=== PATIENT | female | born 1970 | race African-American/Black ===

== ENCOUNTER 2019-07-21 13:17 | Inpatient (IN) ==
[2019-07-21] MEDS ORDERED: PROTONIX IV ONE (13:34)
[2019-07-21] MEDS ORDERED: SODIUM CHLORIDE 0.9% INJ ONE (13:34)
[2019-07-21 14:21] LABS: BASO# 0.01 X1000 (0.0-0.2); BASO% 0.1 % (0.0-0.8); EOS% 1.1 % (0.0-10.0); HEMATOCRIT 42.7 % (37.0-47.0); HEMOGLOBIN 13.3 g/dL (12.0-16.0); LYMPH# 2.34 X1000 (1.2-3.4); LYMPH% 24.8 % (20.5-51.1); MCH 25.6 PG (27-31); MCHC 31.1 g/dL (33-37); MCV 82.3 FL (81-99); MONO# 0.88 X1000 (0.11-0.59); MONO% 9.3 % (1.7-9.3); MPV 10.8 FL (7.4-10.4); NEUT% 64.7 % (42.2-75.2); PLT 258 X1000 (130-400); RBC 5.19 XMIL (4.2-5.4); RDW 14.4 % (11.5-14.5); WBC 9.43 X1000 (4.8-10.8)
[2019-07-21 14:28] LABS: INR 1.14; PROTIME 14.7 Seconds (11.0-16.0)
[2019-07-21 14:29] LABS: PTT 27.7 Seconds (22.3-41.8)
[2019-07-21 14:55] LABS: AGAP 12; ALB/GLOB RATIO 1.1; ALBUMIN 4.6 g/dL (3.5-5.0); ALKALINE PHOSPHATASE 73 U/L (32-104); BUN 11 mg/dL (8-22); CALCIUM 9.2 mg/dL (8.8-10.2); CHLORIDE 97 mmol/L (98-107); COSMO 279; CREATININE 0.9 mg/dL (0.5-0.9); ESTIMATED GFR > 60; GLUCOSE 96 mg/dL (70-104); GOT 12 U/L (10-30); GPT 15 U/L (10-36); POTASSIUM 3.1 mmol/L (3.5-5.1); SODIUM 140 mmol/L (136-145); TCO2 31 mmol/L (25-35); TOTAL BILIRUBIN 0.54 mg/dL (0.20-1.00); TOTAL PROTEIN 8.6 g/dL (6.3-8.3)
[2019-07-21] MEDS ORDERED: KLOR-CON PO ONE (15:00)
[2019-07-21] MEDS ORDERED: TYLENOL PO ONE (15:07)
--- NOTE | 2019-07-21 15:14 | PROVIDER DOCUMENTATION ---
This chart was entered by Genoveva Mckoy Scribe, acting as scribe for Shayan Bloom MD. HPI-Abdominal Pain/GI Problem - General Stated Complaint: GI BLEED Time Seen by Provider: 07/21/19 13:20 Source: patient Allergies/Adverse Reactions: Patient Allergies Allergy/AdvReac Type Severity Reaction Status Date / Time No Known Allergies Allergy Verified 07/21/19 13:39 Home Medications: Home Medication List Medication Instructions Recorded Confirmed Last Taken Type Amlodipine [Norvasc] 5 mg PO DAILY 07/20/19 07/21/19 07/21/19 History Hydralazine [Apresoline] 50 mg PO TID 07/20/19 07/21/19 07/21/19 History Nebivolol HCl [Bystolic] 10 mg PO DAILY 07/20/19 07/21/19 07/21/19 History Triamterene/Hydrochlorothiazid 1 tab PO DAILY 07/20/19 07/21/19 07/21/19 History [Triamterene-Hctz 37.5-25 mg Cp] Hydrocodone/APAP 5 mg/325 mg 1 ea PO TID PRN 07/21/19 07/21/19 07/21/19 History [O[place]-5] - History of Present Illness-ABD Nature of Presenting Problems: 48yof presents to ED by ems CC bright red rectal bleeding , right side abdominal pain, dizziness, dysuria and increased urine since this morning. Pt was seen at [place] yesterday for a fall and rectal bleeding. Pt has no hx of GI issues. Pt is nontoxic and in no acute distress upon exam but does has active rectal bleeding. Abdominal Pain Onset Location: reports: RLQ Pain Radiation: reports: no radiation Quality of Pain: reports: cramping Severity in ED: reports: mild Onset/Duration: reports: this morning Timing: reports: still present Modifying Factors: improves with: nothing Similar Symptoms Previously?: Yes Recently seen or treated by another doctor?: Yes (seen in ED 07/20/19) Review of Systems - Adult - REVIEW OF SYSTEMS - ADULT Constitutional: reports: see maday DUONG. denies: chills, fever Eyes: reports: no symptoms reported Ears, Nose, Mouth & Throat: reports: no symptoms reported Cardiovascular: reports: no symptoms reported Respiratory: reports: no symptoms reported Gastrointestinal: reports: see HPI, abdominal pain (RLQ), rectal bleeding. denies: diarrhea, nausea, vomiting Genitourinary: reports: see HPI, dysuria, frequency. denies: flank pain Musculoskeletal: reports: no symptoms reported Integumentary: reports: no symptoms reported Neurological: reports: see HPI, dizziness/vertigo. denies: syncope Psychiatric: reports: no symptoms reported Endocrine: reports: no symptoms reported Hematologic/Lymphatic: reports: no symptoms reported Allergic/Immunologic: reports: no symptoms reported All Other Systems: Reviewed and Negative Past History - Adult - PAST MEDICAL HISTORY-ADULT Review of Records: reports: Nursing Assessment Review, Medications Reviewed, Social history reviewed & non-contributory. Major Childhood Illnesses: reports: denies history Cardiovascular: reports: HTN Respiratory: reports: denies history Gastrointestinal: reports: denies history Obstetrical/Gynecological: reports: denies history Genitourinary: reports: dialysis, kidney disease, other (SONIYA) Musculoskeletal: reports: denies history Neurological: reports: CVA, stroke deficits Psychiatric: reports: denies history Endocrine/Immune: reports: denies history Other Conditions: reports: denies history - PRIOR SURGERIES/PROCEDURES Surgical/Procedure History: reports: cholecystectomy, hysterectomy, other (Double J stents for nephrolithiasis) - PRIOR HOSPITALIZATIONS Prior Hospitalizations: reports: for other non-related - IMMUNIZATION STATUS Childhood Immunizations: See Nurse Assessment Flu Vaccine: See Nurse Assessment - FAMILY HISTORY Family History: reviewed, not pertinent - SOCIAL HISTORY Smoking: denies Physical Exam-General - PHYSICAL EXAM-ADULT Initial Vital Signs Reviewed: Yes - CONSTITUTIONAL General Appearance: appears well, alert, no apparent distress, obese. negative: anxious, combative - EYES Eyes: PERRL/EOMI, pink conjunctivae. negative: photophobia - HEAD, EARS, NOSE, MOUTH & THROAT HENMT: normocephalic/atraumatic, moist mucous membranes. negative: angioedema - RESPIRATORY Respiratory: chest non-tender, lungs clear, normal breath sounds. negative: rhonchi, wheezing - CARDIOVASCULAR Cardiovascular: normal peripheral pulses, regular rate, rhythm, no edema. negative: bradycardia, tachycardia - GASTROINTESTINAL (ABDOMEN) Abdominal Exam: normal bowel sounds, soft, tenderness (RLQ) - GENITOURINARY Rectal Exam: normal exam, normal rectal tone, blood streaked stool Hemoccult Exam: heme positive stool - LYMPHATIC Lymphatic: no adenopathy - MUSCULOSKELETAL Back Exam: normal inspection, no CVA tenderness, no vertebral tenderness Extremity: normal range of motion, normal inspection - SKIN Integumentary: normal color. negative: diaphoresis, jaundice - PSYCHIATRIC Psych/Mental Status: normal mood/affect, oriented x 3. negative: anxious, disheveled Progress - PLAN OF CARE/RESULTS Progress/Plan/Lab Results: Orders Category Date Time Status CBC WITH ELECTRONIC DIFF [HEME] Stat Lab 07/21/19 13:22 Uncollected COMPREHENSIVE METABOLIC PANEL [CHEM] Stat Lab 07/21/19 13:22 Uncollected OCCULT BLOOD DIAGNOSTIC [STOOL] Stat Lab 07/21/19 13:22 Uncollected PROTIME WITH INR [COAG] Stat Lab 07/21/19 13:22 Uncollected PTT [COAG] Stat Lab 07/21/19 13:22 Uncollected URINALYSIS W/POSS RFLX CULT [URINALYSIS] Stat Lab 07/21/19 13:22 Uncollected Result Diagrams: 07/21/19 14:06 07/21/19 14:06 - CONSULTS/PCP/HOSPITALIST Notification #1 *Consult/PCP/Hospitalist*: Gauri/[employer] for Dr Johnson Time Discussed: 15:12 Consult Disposition: Admit (accepted pt) Departure - Departure Date of Disposition Decision: 07/21/19 Time of Disposition Decision: 15:12 DIAGNOSIS: GI bleeding, Hypokalemia Disposition: ADMITTED INPATIENT 09 Certified Medical Emergency: Emergent Condition: Fair Additional Instructions: ED Follow Up Instructions: You have been treated by a care provider in the Emergency Department. These instructions are being provided to you so you can have an understanding of how to care for yourself upon discharge. Upon discharge from the Emergency Department, you are responsible for making arrangements for follow-up care by a physician of your choice. Take all prescribed medications as directed. Return to the Emergency Department immediately for any new or worsening symptoms. You may call the Physician Referral phone number at [phone] to obtain a list of Physicians who are taking new patients. Referrals and Follow-Ups: Demetrius Wilkins MD [Primary Care Provider] - - Critical Care Note This patient required my direct & personal management of CC.: No Attestation - Physician/ SATURNINO Attestation Patient care was provided by Advanced Practice Provider:: No The physician spent face to face time with patient:: Yes Advanced Practice Provider documentation review:: Supervising physician onsite and consulted in the evaluation and care of this patient. The physician did have a face to face encounter with the patient. This chart was documented by the indicated scribe, (Genoveva Mckoy Scribe) and accurately reflects the services I performed and decisions made by me, Shayan Bloom MD, as attested by the provider's signature.
[2019-07-21] MEDS ORDERED: ZOFRAN IV PRN (15:32)
--- NOTE | 2019-07-21 15:37 | Diag Imaging Result Doc PS360 ---
EXAM: CT ABD/PELVIS W/IV CONT ONLY HISTORY: lower gi bleeding TECHNIQUE: CT abdomen and pelvis with intravenous contrast COMPARISON: 03/21/2016 FINDINGS: The gallbladder has been removed. There is fatty infiltration of the liver. Normal spleen, pancreas, adrenal glands, and kidneys. No hydronephrosis. Normal aorta. Normal appendix. No abscess. No bowel obstruction. The uterus has been removed. Normal ovaries. No pelvic mass. The urinary bladder is are not distended. Prominent degenerative changes in the lower cervical spine with severe spinal stenosis at L4-5. Thickening to the rectal wall inferiorly. IMPRESSION: 1.Possible proctitis 2.Cholecystectomy 3.There is fatty infiltration of the liver 4.Severe spinal stenosis at L4-5 5.Hysterectomy This exam was performed using automated exposure control, adjustment of mA or kV according to patient size, and/or use of iterative reconstruction technique. Electronically signed by Sumeet Jones 07/21/2019 3:34 PM
--- NOTE | 2019-07-21 15:45 | Diag Imaging Result Doc PS360 ---
EXAM: CHEST-PORTABLE HISTORY: dyspnea TECHNIQUE: Chest single view COMPARISON: 07/20/2018 FINDINGS: The lungs are well expanded. The heart is not enlarged. The vessels are mildly distended. There are no infiltrates. No effusion identified. IMPRESSION: Borderline mild pulmonary edema. Electronically signed by Sumeet Jones 07/21/2019 3:43 PM
[2019-07-21 15:54] LABS: URINE SOURCE CLEAN CATCH
[2019-07-21 15:58] LABS: BILIRUBIN URINE NEGATIVE (NEGATIVE); BLOOD URINE MODERATE (NEGATIVE); COLOR YELLOW; GLUCOSE URINE NEGATIVE (NEGATIVE); KETONE URINE NEGATIVE (NEGATIVE); LEUKOCYTES URINE NEGATIVE (NEGATIVE); NITRITE URINE NEGATIVE (NEGATIVE); PROTEIN URINE NEGATIVE (NEGATIVE); SP GRAVITY URINE 1.015; TURBIDITY URINE CLEAR (CLEAR); UROBILINOGEN URINE NORMAL (NORMAL)
[2019-07-21 15:59] LABS: UR EPITHELIAL CELLS <10 /HPF (<10); URINE BACTERIA NEGATIVE /HPF; URINE WBC <10 /HPF (<10)
[2019-07-21] MEDS: FLAGYL 500 MG/NS 500 MG/100 ML IVPB IV SCH (19:12)
[2019-07-21] MEDS: NS 1,000 ML IV SCH (19:12)
[2019-07-21] MEDS: APRESOLINE PO SCH (19:20)
[2019-07-21] MEDS: SODIUM CHLORIDE 0.9% INJ ONE (19:27)
--- NOTE | 2019-07-21 21:04 | HISTORY AND PHYSICAL ---
PRIMARY CARE PHYSICIAN: Jose Figueroa MD CHIEF COMPLAINT: "I started having rectal bleeding last night after suffering a fall, but I have been having diarrhea for the last week." HISTORY OF PRESENT ILLNESS: Ms. Cuevas is a 48-year-old female with a history of hypertension, and CVA and obesity who presented to the ER today with a chief complaint of rectal bleeding that started yesterday evening. The patient reports that she tripped and fell yesterday while cleaning up a room in her house. At that time she hit her right hip. She said shortly after falling, she started having rectal bleeding. She went to [facility] at which time she had an x-ray of the sacrum and coccyx done that was noted to show just chronic changes. No evidence of an acute fracture. The patient was told to follow up with her primary care physician. The patient also reports that she has been having diarrhea and that has been going on for about a week. She complains of mild nausea but no vomiting. She also complains of abdominal cramping whenever she has a bowel movement. She describes her stool as maroon in color. The patient reports that she has never had anything like this happen before. The patient's last colonoscopy was in June of 2015, and it was noted to be normal. PAST MEDICAL HISTORY: 1. Hypertension. 2. History of CVA x2. 3. Obesity. 4. Severe lumbar spinal stenosis PAST SURGICAL HISTORY: 1. Hysterectomy. 2. Cholecystectomy. FAMILY HISTORY: Reviewed and noncontributory. SOCIAL HISTORY: The patient lives at home with family. She denies any tobacco, alcohol or illicit drug use. ALLERGIES: No known drug allergies. HOME MEDICATIONS: 1. Norvasc 5 mg p.o. daily. 2. Hydralazine 50 mg p.o. 3 times a day. 3. [place] 5/325 one tab oral 3 times a day p.r.n. for pain. 4. Bystolic 10 mg p.o. daily. 5. Triamterene/hydrochlorothiazide 1 tab oral daily. REVIEW OF SYSTEMS: A 12-point review of systems has been performed. Please refer to the history of present illness for pertinent positives and negatives. PHYSICAL EXAMINATION: VITAL SIGNS: Temperature 97.3 degrees, blood pressure 143/86, heart rate 60, respirations 18, O2 saturations 100% on room air. GENERAL: This is an overweight female lying on the stretcher in no acute distress HEAD: Normocephalic, atraumatic NECK: Supple, no JVD, no lymphadenopathy HEART: S1, S2 normal. Regular rate and rhythm. LUNGS: Clear to auscultation bilaterally. No wheezing. No rales. No rhonchi. ABDOMEN: Positive bowel sounds. Soft, nontender, nondistended. EXTREMITIES: No edema. No cyanosis. No calf tenderness. NEUROLOGIC: The patient is alert and oriented x4. No focal neurologic deficits noted. LABORATORY DATA: White blood cell count 4.1, hemoglobin 12, hematocrit 40, platelets 258,000, Sodium 140, potassium 3.1, chloride 97, CO2 31, BUN 11, creatinine 0.9, glucose 96, magnesium 1.8, AST 12, ALT 15, albumin 4.6. DIAGNOSTIC DATA: 1. Chest x-ray shows mild pulmonary edema. 2. CT of the abdomen and pelvis shows proctitis. Fatty infiltration of the liver. Severe spinal stenosis at L4-L5. ASSESSMENT AND PLAN: 1. Rectal bleeding with proctitis. We will place the patient on a clear liquid diet. We will check stool studies and start the patient on Flagyl. We will also consult with GI. We will monitor the hemoglobin and hematocrit closely. 2. Hypertension. We will restart the patient's antihypertensive regimen. 3. History of cerebrovascular accident. Aware. 4. GI prophylaxis. Will start protonix. 5. Deep vein thrombosis prophylaxis. We will start the patient on SCDs. cc: Kim Johnson MD [facility]
[2019-07-21] MEDS: NORCO-5 PO PRN (21:12)
[2019-07-21 21:17] LABS: HEMATOCRIT 40.2 % (37.0-47.0); HEMOGLOBIN 12.6 g/dL (12.0-16.0)
[2019-07-22] MEDS: FLAGYL 500 MG/NS 500 MG/100 ML IVPB IV SCH ×5 (01:02→23:31)
[2019-07-22] MEDS: NORCO-5 PO PRN (03:45)
[2019-07-22] MEDS ORDERED: SODIUM CHLORIDE 0.9% 10 ML ONE ×2 (06:10→07:52)
[2019-07-22] MEDS: PROTONIX IV SCH ×2 (06:12→17:48)
[2019-07-22] MEDS: SODIUM CHLORIDE 0.9% INJ ONE (06:12)
[2019-07-22 06:17] LABS: HEMATOCRIT 41.1 % (37.0-47.0); HEMOGLOBIN 12.9 g/dL (12.0-16.0); MCHC 31.4 g/dL (33-37); MCV 82.7 FL (81-99); MPV 11.3 FL (7.4-10.4); RBC 4.97 XMIL (4.2-5.4); RDW 14.7 % (11.5-14.5); WBC 8.98 X1000 (4.8-10.8)
[2019-07-22] MEDS: NS 1,000 ML IV SCH ×3 (06:48→18:16)
[2019-07-22 06:49] LABS: AGAP 12; BUN 9 mg/dL (8-22); CALCIUM 9.3 mg/dL (8.8-10.2); CHLORIDE 101 mmol/L (98-107); COSMO 282; CREATININE 0.8 mg/dL (0.5-0.9); ESTIMATED GFR > 60; GLUCOSE 97 mg/dL (70-104); POTASSIUM 2.8 mmol/L (3.5-5.1); SODIUM 142 mmol/L (136-145); TCO2 29 mmol/L (25-35)
[2019-07-22] MEDS ORDERED: KLOR-CON PO ONE (06:50)
[2019-07-22] MEDS ORDERED: MAGNESIUM SULFATE 2 GM/S.W.I. 2 GM/50 ML IVPB IV ONE (07:30)
[2019-07-22] MEDS: NORVASC PO SCH (09:55)
[2019-07-22] MEDS: APRESOLINE PO SCH ×3 (09:55→17:50)
--- NOTE | 2019-07-22 12:34 | GASTROENTEROLOGY CONSULTATION ---
DATE: 07/22/2019 REASON FOR CONSULTATION: GI bleed. HISTORY OF PRESENT ILLNESS: Ms Cuevas is a 48-year-old female. She has a history of hypertension, CVA and obesity, presented to the ER with complaints of rectal bleeding. She mentioned having diarrhea on Saturday and Saturday, atleast 3 to 4 times with abdominal cramps. She noticed some bleeding on Saturday. On Saturday, she fell at home and came to the ER, they took an x-ray of the hip and it showed that the hip was swollen and also had slight rectal bleeding so they asked her to follow up with her primary care provider. When she went to her primary care provider, she had bleeding which looked like dark red blood. she was dizzy and had chills, but she denied any nausea, vomiting, shortness of breath, or fever. She has a history of taking Advil for her headaches. The patient had a colonoscopy in 2014 and it showed that she had diverticulosis, she also has history of hemorrhoids. PAST MEDICAL HISTORY: Hypertension, history of cerebrovascular accident, obesity, spinal stenosis, diverticulosis, hemorrhoids. PAST SURGICAL HISTORY: Hysterectomy and cholecystectomy. SOCIAL HISTORY: She is single and lives with her mother, has 1 daughter. She denies any alcohol, tobacco, or illicit drug use. ALLERGIES: She has no known drug allergies. FAMILY HISTORY: Mom had breast cancer, hypertension and diabetes, and father had hypertension and diabetes. HOME MEDICATIONS: Hydralazine 50 mg 3 times a day, triamterene/hydrochlorothiazide 37.5/25 1 tablet daily, amlodipine 5 mg daily, Bystolic 10 mg daily, and hydrocodone/acetaminophen 5/325 mg 1 tablet 3 times a day p.r.n. REVIEW OF SYSTEMS: As per HPI, otherwise 12 point review of system is negative. PHYSICAL EXAMINATION: Vital Signs: Temperature 98.5 degrees, pulse is 72, respirations 18, blood pressure is 141/83, oxygen saturation is 100% on room air. Her weight is 253 pounds. BMI is 40.9 kg/m2. General: She is obese, alert, oriented x3, and in no acute distress. Neck: Supple. HEENT: Pale conjunctivae. No icterus. PERRL. Heart: Regular rate and rhythm. No abnormal breath sounds. No rubs, murmurs, or gallops heard on auscultation. Lungs: Clear to auscultation anterior and posterior. Abdomen: Soft, nontender. Distended. Active bowel sounds heard in all 4 quadrants. Extremities: No edema, clubbing, or cyanosis. 2+ pedal pulses present bilaterally. Neurological: Alert, oriented x3. Nonfocal. Cranial nerves 2-12 grossly intact. LABORATORY DATA: WBCs 8.98, RBC 4.97, hemoglobin 12.9, hematocrit 41.1, platelet count is 250,000. Sodium is 142, potassium is 2.8, chloride is 101, carbon dioxide 29, anion gap of 12, BUN is 9, creatinine 0.8. AST 12, ALT 15, alkaline phosphatase is 76, albumin 4.6. Urinalysis showed a moderate amount of blood. IMAGING: Chest x-ray showed borderline mild pulmonary edema. Abdominal CT and pelvis showed possible proctitis, cholecystectomy, fatty infiltration of the liver, severe spinal stenosis, and hysterectomy. IMPRESSION: 1. Rectal bleeding. 2. Hypertension. 3. Hemorrhoids. 4. History of CVA 5. Mild pulmonary edema 6. Fatty liver disease PLAN: The plan is to do a colonoscopy tomorrow to find out the cause of her GI bleed. The patient is currently on clear liquid diet. She will be NPO after midnight. She is on IV fluids, normal saline at 75 mL. Patient is hemodynamically stable, H & H is 12.9 and 41.1. Further plan of care will be based on the colonoscopy findings. Discussed the risks, benefit, and alternatives of the procedure, patient acknowledges understanding the instructions. This plan was discussed with Dr. Chisholm. Thank you for your consult. Please call us for any further questions or concerns. Dictated by NEETA Coronel for Niko Chisholm MD Physician Attestation I have seen and examined the patient. I have discussed and reviewed the the note by Pilar SANTACRUZ and agree with findings and plan as documented. Ms. Cuevas is a 48 year old woman who presents with scant rectal bleeding in the setting recent acute diarrhea. CT shows question proctitis. No personal or FHx of IBD or GI malignancies. Hgb at baseline. Rectal exam negative for blood in vault. Will prep with 4L golytely and plan on diagnostic colonoscopy tomorrow. [facility]
[2019-07-22] MEDS ORDERED: GOLYTELY PO ONE (14:00)
--- NOTE | 2019-07-22 19:30 | PROGRESS NOTE ---
DATE: 07/22/2019 SUBJECTIVE: The patient is resting comfortably in bed. She has no complaints. OBJECTIVE: Vital Signs: Temperature 98.4 degrees, blood pressure 154/89, heart rate 76, respirations 14, O2 saturations 100% on room air. General: This is a elderly female lying in bed in no acute distress. Heart: S1, S2 normal. Regular rate and rhythm. Lungs: Clear to auscultation bilaterally. Abdomen: Positive bowel sounds. Soft, nontender, nondistended. Extremities: No edema, no cyanosis. Neurologic: The patient is alert and oriented x3. LABORATORY DATA: Hemoglobin 12, hematocrit 41. Sodium 142, potassium 2.8, chloride 101, CO2 29, magnesium 1.7. ASSESSMENT AND PLAN: 1. Rectal bleeding. The patient is scheduled to undergo a colonoscopy tomorrow. So far, the hemoglobin and hematocrit is stable. The patient's stool studies are negative. 2. Severe lumbar stenosis involving L4-L5. Aware. Continue with p.r.n. pain medication. 3. Hypertension. Continue on the current antihypertensive regimen. 4. Deep vein thrombosis prophylaxis. Continue with sequential compression devices. cc: Kim Johnson MD MTDD
[2019-07-23] MEDS: NS 1,000 ML IV SCH ×2 (04:12→10:52)
[2019-07-23 05:23] LABS: HEMATOCRIT 38.4 % (37.0-47.0); HEMOGLOBIN 11.8 g/dL (12.0-16.0); MCH 25.2 PG (27-31); MCHC 30.7 g/dL (33-37); MCV 81.9 FL (81-99); RBC 4.69 XMIL (4.2-5.4); RDW 14.5 % (11.5-14.5); WBC 11.22 X1000 (4.8-10.8)
[2019-07-23] MEDS: FLAGYL 500 MG/NS 500 MG/100 ML IVPB IV SCH ×3 (05:39→22:06)
[2019-07-23 05:41] LABS: AGAP 13; BUN 5 mg/dL (8-22); CALCIUM 8.2 mg/dL (8.8-10.2); CHLORIDE 103 mmol/L (98-107); COSMO 281; CREATININE 0.8 mg/dL (0.5-0.9); ESTIMATED GFR > 60; GLUCOSE 107 mg/dL (70-104); MAGNESIUM 1.8 mg/dL (1.5-2.7); POTASSIUM 3.2 mmol/L (3.5-5.1); SODIUM 142 mmol/L (136-145); TCO2 26 mmol/L (25-35)
[2019-07-23] MEDS ORDERED: POTASSIUM CHLORIDE 60 MEQ in NS 500 ML IV ONE (06:37)
[2019-07-23] MEDS ORDERED: DIPRIVAN 1% ONE (09:19)
[2019-07-23] MEDS ORDERED: XYLOCAINE-MPF 2% ONE (09:19)
[2019-07-23] MEDS ORDERED: VERSED ONE (09:20)
--- NOTE | 2019-07-23 10:23 | ENDOSCOPY OPERATIVE NOTE ---
[facility] ENDOSCOPY OPERATIVE NOTE , PATIENT: Ike Cuevas ADM DATE: MR #: [id number] : 1970 COLONOSCOPY PROCEDURE REPORT PROCEDURE DATE: 07/23/2019 SURGEON: Marty Aly MD STATUS: inpatient CLINICAL ASSOCIATE: Gauri Gómez and Nancy Carpio PREOPERATIVE DIAGNOSIS: The patient is a 48 yr old female here for a colonoscopy due to Rectal Bleed ing. PROCEDURE PERFORMED: Colonoscopy, diagnostic MEDICATIONS: Per Anesthesia PREP TYPE: GoLytely
[2019-07-23] MEDS: NORVASC PO SCH (11:08)
[2019-07-23] MEDS: APRESOLINE PO SCH ×4 (11:08→18:06)
[2019-07-23] MEDS: MIRALAX PO SCH (11:46)
[2019-07-23] MEDS: NORCO-5 PO PRN (14:26)
[2019-07-23] MEDS: METAMUCIL POWDER PACKET PO SCH (20:34)
[2019-07-24] MEDS: FLAGYL 500 MG/NS 500 MG/100 ML IVPB IV SCH ×4 (04:14→23:44)
[2019-07-24 05:37] LABS: HEMATOCRIT 37.1 % (37.0-47.0); HEMOGLOBIN 11.7 g/dL (12.0-16.0); MCH 26.2 PG (27-31); MCHC 31.5 g/dL (33-37); MCV 83.2 FL (81-99); MPV 10.8 FL (7.4-10.4); RBC 4.46 XMIL (4.2-5.4); RDW 14.7 % (11.5-14.5); WBC 10.75 X1000 (4.8-10.8)
[2019-07-24 05:59] LABS: MAGNESIUM 1.7 mg/dL (1.5-2.7); PHOSPHORUS 3.1 mg/dL (2.7-4.5)
[2019-07-24 06:03] LABS: AGAP 12; BUN 6 mg/dL (8-22); CALCIUM 8.7 mg/dL (8.8-10.2); CHLORIDE 104 mmol/L (98-107); COSMO 279; CREATININE 0.7 mg/dL (0.5-0.9); ESTIMATED GFR > 60; GLUCOSE 104 mg/dL (70-104); POTASSIUM 3.4 mmol/L (3.5-5.1); SODIUM 141 mmol/L (136-145); TCO2 25 mmol/L (25-35)
[2019-07-24] MEDS ORDERED: KLOR-CON PO ONE (06:08)
[2019-07-24] MEDS ORDERED: MAGNESIUM SULFATE 2 GM/S.W.I. 2 GM/50 ML IVPB IV ONE (06:08)
[2019-07-24] MEDS: APRESOLINE PO SCH ×3 (09:01→17:20)
[2019-07-24] MEDS: NORVASC PO SCH (09:02)
[2019-07-24] MEDS: MIRALAX PO SCH (11:00)
--- NOTE | 2019-07-24 11:31 | GASTROENTEROLOGY PROGRESS NOTE ---
DATE: 07/24/2019 SUBJECTIVE: Ms Zambrano is a 48-year-old female sitting in bed denied any nausea, vomiting, or diarrhea. She has denied any blood in the stools. OBJECTIVE: Vital Signs: Temperature 98.9 degrees, pulse is 80, respirations 18, blood pressure is 136/75, oxygen saturation 100% on room air. The patient's weight is 250 pounds. BMI is 40.5 kg/m2. General: She is alert, oriented x3, in no acute distress. The patient is morbidly obese. HEENT: Pale conjunctivae. No icterus. Neck: Supple. Lungs: Clear to auscultation in anterior and posterior richardson. Heart: Regular rate and rhythm. No abnormal breath sounds heard. No rubs, murmurs or gallops. Abdomen: Obese, Soft, nontender. Active bowel sounds heard in all 4 quadrants. Extremities: No edema, clubbing or cyanosis. 2+ pedal pulses present bilaterally. Neurologic: Alert, oriented x3. LABS: WBCs 10.75, RBC 4.46, hemoglobin is 11.7, hematocrit of 37.1, platelet count is 250,000. Sodium is 141, potassium is 3.4, chloride is 104, carbon dioxide is 25, anion gap is 12. BUN is 6, creatinine 0.7, glucose is 104, calcium is 8.7, phosphorus 2.1 and magnesium is 1 7. IMPRESSION AND PLAN: Rectal bleeding Hemorrhoids Mild colitis Fatty liver disease Hypertension Mild pulmonary edema Hx of CVA PLAN: We did a colonoscopy yesterday and the findings were mild colitis in the rectum, rectal ulcers with surrounding localized colitis suggesting stercoral colitis, likely due to rectal impaction. No active bleeding noted and First-degree hemorrhoids. Advised patient to follow a high fiber diet, continue bowel regimen miralax daily and Metamucil at bedtime. Patient has been advised to followup as an outpatient in 3 months for a flex sigmoidoscopy. Her H & H today was 11.7 and 37.1, she is hemodynamically stable, we will continue to monitor her CBC and BMP. Discussed the risk of obesity with the patient, emphasized on losing weight and following a healthy diet plan. Patient acknowledges understanding of the instructions. We will continue to follow the plan of care per PCP. This plan was discussed with Dr. Chisholm. Please call us for any further questions or concerns. Dictated by NEETA Coronel for Niko Chisholm MD Physician Attestation I have seen and examined the patient. I have discussed and reviewed the the note by Pilar SANTACRUZ and agree with findings and plan as documented. Ms. Zambrano is a 48 year old woman who presents with rectal bleeding in the setting of proctitis from stercoral ulceration and hemorrhoids seen on colonoscopy. She is having bowel movements on miralax. Continues to have scant rectal bleeding with stable hgb. Ok for patient to be discharged with follow-up sigmoidoscopy in 3 months. Will sign off. Please call with questions. KELLY
--- NOTE | 2019-07-24 15:57 | PROGRESS NOTE ---
DATE: 07/24/2019 SUBJECTIVE: The patient states that she had a little bit of slight bleeding when she had a bowel movement this morning. She does complain of rectal pain whenever she has a bowel movement. OBJECTIVE: Vital Signs: Temperature 98.9 degrees, blood pressure 130/84, heart rate 78, respirations 18, O2 saturations 100% on room air. General: This is a morbidly obese female lying in bed in no acute distress. Heart: S1, S2 normal. Regular rate and rhythm. Lungs: Equal air entry bilaterally. No wheezing. No rales. No rhonchi. Abdomen: Positive bowel sounds. Soft, nontender, nondistended. Extremities: No edema, no cyanosis. Neurologic: The patient is alert and oriented x4. LABS: White blood cell count 10, hemoglobin 11, hematocrit 37, platelets 250,000, potassium 3.4, magnesium 1.7, phosphorus 3.1. ASSESSMENT AND PLAN: 1. Rectal bleeding secondary to stercoral colitis with a rectal ulcer. Continue with MiraLAX and Metamucil. The patient is tolerating her diet. 2. Severe lumbar stenosis of L4-L5. Aware. 3. Hypertension. Continue on the current antihypertensive regimen. 4. Deep vein thrombosis prophylaxis. Continue with SCDs. 5. Disposition. The patient should be stable for discharge tomorrow. She will follow up with Dr. Aly as outpatient. cc: Kim Johnson MD [facility]TDD
[2019-07-24] MEDS: METAMUCIL POWDER PACKET PO SCH (22:16)
[2019-07-25 05:47] LABS: HEMATOCRIT 37.3 % (37.0-47.0); HEMOGLOBIN 11.4 g/dL (12.0-16.0); MCH 25.3 PG (27-31); MCHC 30.6 g/dL (33-37); MCV 82.9 FL (81-99); MPV 11.2 FL (7.4-10.4); RBC 4.5 XMIL (4.2-5.4); RDW 14.7 % (11.5-14.5); WBC 9.59 X1000 (4.8-10.8)
[2019-07-25] MEDS: FLAGYL 500 MG/NS 500 MG/100 ML IVPB IV SCH ×4 (06:06→22:38)
[2019-07-25 06:12] LABS: AGAP 12; BUN 8 mg/dL (8-22); CALCIUM 8.8 mg/dL (8.8-10.2); CHLORIDE 107 mmol/L (98-107); COSMO 284; CREATININE 0.8 mg/dL (0.5-0.9); ESTIMATED GFR > 60; GLUCOSE 103 mg/dL (70-104); POTASSIUM 3.4 mmol/L (3.5-5.1); SODIUM 143 mmol/L (136-145); TCO2 24 mmol/L (25-35)
[2019-07-25] MEDS: APRESOLINE PO SCH ×3 (10:05→18:22)
[2019-07-25] MEDS: NORVASC PO SCH (10:05)
[2019-07-25] MEDS: MIRALAX PO SCH (11:33)
[2019-07-25] MEDS ORDERED: KLOR-CON PO ONE (12:45)
[2019-07-25] MEDS: BYSTOLIC PO SCH (13:44)
--- NOTE | 2019-07-25 14:02 | PROGRESS NOTE ---
DATE: 07/25/2019 INTERVAL HISTORY: The patient had another episode of bloody bowel movement at about 1 a.m. She states that she felt like as if the stool started gushing out and she did not have control over it. She states that this has been happening ever since she fell down. After that episode, she started feeling dizzy. She denies any other complaints. She only had that bowel movement at night time. We discussed about observing her inside the hospital for another day. VITAL SIGNS: Currently temperature of 98.2 degrees, pulse of 72, respiratory rate 14, blood pressure 180/100, saturating 100% room air. PHYSICAL EXAMINATION: General: Not in acute distress. HEENT: She does have hirsutism. Oral cavity is moist. Lungs: Air entry bilaterally equal. No wheeze, rhonchi, crackles. Cardiovascular: S1, S2 normal. No murmur or gallop. Abdomen: Soft, nontender. Extremities: She does not have lower extremity edema. She does have lower lumbar spinal and paraspinal tenderness, and straight leg raising test is positive on the right side. Her sensations are intact bilaterally. Motor power and tone are equal except limitations by her pain in RLE. LABORATORY DATA: Suggestive of stable hemoglobin, stable platelet count, normal electrolytes. MICROBIOLOGY: Stool culture so far has been negative. C difficile toxin analysis as well as C diff antigens were negative. ASSESSMENT AND PLAN: 1. Acute lower GI/ Rectal bleeding due to stercoral colitis with rectal ulcer. Continue MiraLAX and Metamucil. She should have a repeat sigmoidoscopy 3 months later. 2. Severe lumbar stenosis affecting 4th and 5th lumbar vertebrae with positive right-sided straight leg raising test. I advised her weight reduction and regular physical activity. I will continue her on [place] as needed for pain. She denies any tingling or numbness or any weakness of lower extremities. She does not have any urinary incontinence. Her loose bowel movement could be in the setting of stool softener she is on. I advised her to get an MRI outpatient to better evaluate her spinal stenosis better with outpatient neurosurgery follow up.. 3. Essential hypertension. Continue home amlodipine, hydralazine and add back home nebivolol. 4. Disposition. The patient is still complaining of dizziness with bloody bowel movements so I decided to monitor her for another 24 hours. If she is feeling better and her hemoglobin is stable, she could be discharged tomorrow. If she continues to have gushing of stools without any control, then she may need further imaging of the lumbar spine. However, at the moment, I do not have any suspicion of any spinal cord compression. Plan of care discussed with the patient. Her questions have been answered. cc: Bryce Reddy MD MTDD
--- NOTE | 2019-07-25 17:50 | PROGRESS NOTE ---
DATE: 07/25/2019 SUBJECTIVE: I again evaluated the patient at bedside. Apparently, she was having another bowel movement with blood. She was able to independently come out of bed and sit on a bedside commode. She denies any bowel incontinence. ASSESSMENT AND PLAN: I will get another CBC to make sure her hemoglobin is stable and keep her inside the hospital. Plan of care discussed with her. All of her questions were answered. cc: Bryce Reddy MD MTDD
[2019-07-25] MEDS: METAMUCIL POWDER PACKET PO SCH (20:32)
[2019-07-26] MEDS: FLAGYL 500 MG/NS 500 MG/100 ML IVPB IV SCH ×4 (05:03→23:55)
[2019-07-26 05:39] LABS: BASO# 0.02 X1000 (0.0-0.2); BASO% 0.2 % (0.0-0.8); EOS# 0.28 X1000 (0.0-0.7); HEMATOCRIT 37.7 % (37.0-47.0); HEMOGLOBIN 11.6 g/dL (12.0-16.0); IMM GRAN# 0.02 X1000 (0.0-0.04); IMM GRAN% 0.2 % (0.0-0.5); LYMPH# 2.25 X1000 (1.2-3.4); LYMPH% 23.7 % (20.5-51.1); MCH 25.6 PG (27-31); MCHC 30.8 g/dL (33-37); MONO# 0.86 X1000 (0.11-0.59); MONO% 9.1 % (1.7-9.3); MPV 10.8 FL (7.4-10.4); NEUT# 6.05 X1000 (1.4-6.5); NEUT% 63.8 % (42.2-75.2); PLT 251 X1000 (130-400); RBC 4.54 XMIL (4.2-5.4); RDW 14.7 % (11.5-14.5); WBC 9.48 X1000 (4.8-10.8)
[2019-07-26] MEDS: NORVASC PO SCH (11:05)
[2019-07-26] MEDS: BYSTOLIC PO SCH (11:05)
[2019-07-26] MEDS: APRESOLINE PO SCH ×3 (11:05→17:39)
[2019-07-26] MEDS: MIRALAX PO SCH (11:06)
[2019-07-26] MEDS ORDERED: NORCO-5 PO PRN (12:53)
--- NOTE | 2019-07-26 13:24 | PROGRESS NOTE ---
DATE: 07/26/2019 SUBJECTIVE: The patient reports starting an excruciating pain in the back. Patient able to move the right lower extremity. Patient was told that she has spinal stenosis and she is revealing that pain to that condition. OBJECTIVE: Vitals: Temperature 98.1, heart rate 73, respiratory 14, blood pressure 151/90, O2 saturation 99% on room air. General: This is a 48-year-old female lying in bed in no acute distress. Cardiovascular: No murmurs, gallops, rubs. Regular rate and rhythm. Respiratory: Clear bilaterally to auscultation. No work of breathing or using accessory muscles. Abdomen: Soft, nontender to palpation. Bowel sounds present. No organomegaly. Extremities: No clubbing, cyanosis. Neurological: The patient is alert, oriented x3. Moves 4 extremities. LABORATORY DATA: Reviewed. ASSESSMENT AND PLAN: 1. Acute lower gastrointestinal rectal bleeding. The patient is on MiraLAX and Metamucil, hemoglobin is stable. I think this condition is better. 2. Severe lumbar stenosis affective 4th and 5th lumbar body. Because of this unbearable pain I am going to keep this patient 1 more day. I will increase the frequency of [place] to q.4 hours p.r.n. p.o. I am going to do an MRI of the lumbar spine for better exploration of the back. 3. Hypertension. Will continue with home medications in this case amlodipine, hydralazine and labetalol. 4. Disposition. I think will optimize pain control better and after MRI patient can be safely discharged. cc: Kings Selby MD MTDD
[2019-07-26] MEDS: METAMUCIL POWDER PACKET PO SCH (21:38)
[2019-07-27] MEDS: FLAGYL 500 MG/NS 500 MG/100 ML IVPB IV SCH ×2 (05:57→12:20)
[2019-07-27 08:14] VITALS: BP 145/91
[2019-07-27] MEDS: BYSTOLIC PO SCH (09:38)
[2019-07-27] MEDS: APRESOLINE PO SCH ×2 (09:38→12:20)
[2019-07-27] MEDS: NORVASC PO SCH (09:38)
--- NOTE | 2019-07-27 10:59 | GASTROENTEROLOGY PROGRESS NOTE ---
DATE: 07/27/2019 SUBJECTIVE: Ms. Zambrano is a 48-year-old female sitting in bed. She has denied any nausea, vomiting, or diarrhea. She mentioned having one episode of rectal,bleeding on Saturday. OBJECTIVE: Vital Signs: Temperature 98.5 degrees, pulse of 78, respirations of 16, blood pressure is 145/91, oxygen saturation is 97% on room air. Her weight is 260 pounds. BMI is 42.0. General: She is alert, oriented x3. Morbidly obese and in no acute distress. HEENT: Pale conjunctivae. No icterus. Neck: Supple. Lungs: Clear to auscultation. Cardiovascular: Regular rate and rhythm. No murmurs, rubs, or gallops heard on auscultation. Abdomen: Obese, soft, nontender. Active bowel sounds in all 4 quadrants. Extremities: No edema, clubbing, or cyanosis. Pedal pulses 2+ present bilaterally. Neurological: Alert, oriented x3. LABORATORY DATA: WBC is 9.48, RBCs per 4, hemoglobin is 11.6, hematocrit is 37.7, platelet count is 251,000. Sodium is 143, potassium is 3.4, chloride is 107, carbon dioxide 24, anion gap is 12, BUN is 8, creatinine is 0.8, calcium is 9.8. IMPRESSION AND PLAN: 1. Rectal bleeding. 2. Hemorrhoids. 3. Mild colitis. 4. Fatty liver disease. 5. Hypertension. 6. Mild pulmonary edema. 7. History of CVA 8. Obesity PLAN: Patient is on GI prophylaxis, Protonix 40 mg BID, she can transition to PO Prilosec for 3 months once she is discharged. We have advised patient to have high fiber diet, continue her Metamucil at bedtime and MiraLAX daily for her bowel regimen. We will continue the current plan of care and follow the plan of care per primary care provider. Discussed the risk of obesity, advised patient to lose weight, follow a healthy diet and exercise plan. Patient acknowledges understanding of the instructions. Patient can be discharged from GI standpoint and followup as an outpatient at our clinic in 4 to 6 weeks after she is discharged discharged. This plan was discussed with Dr. Aly. Please call us for any further questions or concerns. Dictated by NEETA Coronel for Marty Aly MD cc: Marty Aly MD I have seen and examined the patient myself and I agree with the above plan of care. Discussed the above with the patient and family and all questions were answered. Please call us with any further questions. KELLY
[2019-07-27] MEDS: MIRALAX PO SCH (12:18)
--- NOTE | 2019-07-27 12:31 | Diag Imaging Result Doc PS360 ---
EXAM: MRI LUMBAR SPINE W/WO CONTRAST 07/27/2019 HISTORY: Doctor's orders TECHNIQUE: T1-T2 and STIR sagittal with post gadolinium T1 fat sat sagittal, axial T1,T2 and post gadolinium T1. COMMENT: There is mild anterolisthesis of L4 on L5 which is presumably due to severe facet arthropathy which is present bilaterally. There is Modic type II change in the endplates at L5-S1 and there is also severe facet arthropathy at this level. No intrathecal masses or signal abnormalities are present. There is no evidence of abnormal gadolinium enhancement intrathecally. There is a hemangioma on the left side in L1. At L1-2 there is facet arthropathy bilaterally without evidence of spinal or foraminal stenosis. At L2-3 there is bilateral facet arthropathy without evidence of spinal or foraminal stenosis. At L3-4 there is bilateral facet arthropathy without evidence of spinal or foraminal stenosis. At L4-5 there is moderate to severe spinal stenosis due to spondylolisthesis and facet arthropathy with ligamentum flavum hypertrophy. At L5-S1 there is apparent right foraminal stenosis. This is largely due to facet arthropathy and osteophyte formation arising from the disc space. IMPRESSION: Degenerative facet and disc changes with spondylolisthesis, and spinal stenosis at L4-5. Electronically signed by Yoni Nascimento 07/27/2019 12:29 PM
--- NOTE | 2019-07-28 15:23 | DISCHARGE SUMMARY ---
ADMISSION DATE: 07/21/2019 DISCHARGE DATE: 07/27/2019 DISCHARGE DIAGNOSES: 1. Rectal bleeding with proctitis. 2. Hypertension. 3. Degenerative osteoarthritis with spondylolisthesis and spinal stenosis at L4-L5. 4. History of cerebrovascular accident. CONSULTATIONS: Dr. Niko Chisholm from GI. PROCEDURES: 1. Abdomen and pelvis CT showed with possible proctitis with cholecystectomy, fatty infiltration of the liver, severe spinal stenosis at L4-L5, and hysterectomy. 2. Colonoscopy showed likely stercoral colitis with rectal ulcer. 3. Lumbar spine MRI showed degenerative facet and disk changes with spondylolisthesis and spinal stenosis L4-L5. HOSPITAL COURSE: In brief, this is a 48-year-old female with a history of hypertension and CVA who presented to the emergency department with a history of rectal bleeding. GI was consulted. They evaluated the patient. They performed a colonoscopy with results as above. Clinically, this patient was doing fine. The hemoglobin was checked and that has been stable so far, in the range of 11. Also because of severe pain we have done an MRI of the lumbar spine with results as above. Patient has been prescribed pain medication and recommended to find a primary care physician to take care of this problem. At this point, patient is being discharged in stable condition. PHYSICAL EXAMINATION: Vital signs: Temperature 98.5, heart rate 78, respiratory rate 16, blood pressure 145/91, O2 saturation 97% on room air. General: This is a 48-year-old female lying in bed, in no acute distress. Cardiovascular: S1, S2 heard. No murmurs, gallops, or rubs. Regular rate and rhythm. Respiratory: Clear bilaterally to auscultation. No work of breathing or using accessory muscles. Abdomen: Soft. Nontender to palpation. Bowel sounds present. No organomegaly. Extremities: No clubbing, cyanosis, or edema. Peripheral pulses present in both legs. Neurological: The patient alert and oriented x3. Moves 4 extremities. DISCHARGE DISPOSITION: Home to self-care. FOLLOW UP: Follow up with Dr. Niko Chisholm in 3 months for a follow-up colonoscopy. DISCHARGE MEDICATIONS: 1. MiraLAX 1 tablet p.o. daily. 2. Metamucil 1 tablet p.o. daily at bedtime. 3. Hydralazine 50 mg p.o. 3 times per day. 4. Amlodipine 5 mg 1 tablet p.o. daily. 5. Labetalol 10 mg 1 tablet p.o. daily. 6. [place] 1 tablet p.o. 3 times per day as needed. cc: Kings Selby MD
== END 2019-07-27 15:15 | disposition home or self-care (01) | DRG 392 ==
LOC: SUPCPDRO → ED 13:17 → SUATTDRO 17:03 → 2N 17:03 → 1N 07-22 18:52
PROVIDERS: ATTEND Internal Medicine